=== PATIENT | female | born 1950 | race Caucasian/White ===

== ENCOUNTER 2023-05-17 06:46 | Inpatient (IN) | payer OTHER ==
[~2023-05-17] VITALS: Ht 160 cm; Wt 55.3 kg
[2023-05-17] VITALS (8 sets, daily range): BP systolic 167–217; BP diastolic 94–131
[2023-05-17] MEDS ORDERED: GOOD SENSE ASPI81 M1 PO (07:31)
[2023-05-17] MEDS ORDERED: ADVIL100 M1 PO (07:32)
[2023-05-17 07:58] LABS: BASO # 0.1 10*3/uL (0.0-0.1); BASO % 0.5 % (0.0-1.0); EOS % 0.2 % (1.0-4.0); HEMATOCRIT 47.6 % (37.0-47.0); LYMPH # 1.1 10*3/uL (1.3-4.4); LYMPH % 7.1 % (27.0-41.0); MEAN CELL VOLUME 90.3 fl (81.0-99.0); MEAN CORPUSCULAR HGB 27.3 pg (27.0-31.0); MEAN CORPUSCULAR HGB CONC 30.3 g/dl (33.0-37.0); MEAN PLATELET VOLUME 9.5 fl (9.6-12.3); MONO # 0.6 10*3/uL (0.1-1.0); MONO % 3.7 % (3.0-9.0); NEUT # 13.5 10*3/uL (2.3-7.9); PLATELET COUNT AUTOMATED 390 10*3/uL (130-400); RED BLOOD COUNT 5.27 10*6/uL (4.10-5.10); RED CELL DISTRI WIDTH 15.6 % (0-14.5); WHITE BLOOD COUNT 15.3 10*3/uL (4.8-10.8)
[2023-05-17 08:17] LABS: ALKALINE PHOSPHATASE 67 U/L (46-116); BUN 16 mg/dl (9-23); CHLORIDE 103 mmol/L (98-107); POTASSIUM 3.9 mmol/L (3.4-5.1); SGPT/ALT 124 U/L (5-49)
[2023-05-17 10:46] LABS: BILIRUBIN Negative (Negative); BLOOD 1+ (Negative); CLARITY Clear (Clear); COLOR Yellow (Yellow); GLUCOSE Negative (Negative); KETONE Negative (Negative); LEUKO ESTERASE Negative (Negative); NITRITE Negative (Negative); PH 7.5 (4.5-8.0); SPECIFIC GRAVITY 1.015 (1.001-1.030); UROBILINOGEN 0.2 E.U./dl (0.0-1.0)
[2023-05-17 11:11] LABS: BACTERIA TRACE; WBC 0-2 wbc/hpf (0-5)
[2023-05-18] VITALS: BP 169/91
[2023-05-18 07:29] LABS: BASO % 0.2 % (0.0-1.0); HEMATOCRIT 45.9 % (37.0-47.0); LYMPH # 1.2 10*3/uL (1.3-4.4); LYMPH % 7.5 % (27.0-41.0); MEAN CORPUSCULAR HGB 27.5 pg (27.0-31.0); MEAN CORPUSCULAR HGB CONC 32.2 g/dl (33.0-37.0); MEAN PLATELET VOLUME 9.3 fl (9.6-12.3); MONO % 6.5 % (3.0-9.0); NEUT # 13.6 10*3/uL (2.3-7.9); NEUT % 85.5 % (47.0-73.0); PLATELET COUNT AUTOMATED 378 10*3/uL (130-400); RED BLOOD COUNT 5.38 10*6/uL (4.10-5.10); RED CELL DISTRI WIDTH 15.4 % (0-14.5); WHITE BLOOD COUNT 15.9 10*3/uL (4.8-10.8)
[2023-05-18 07:42] LABS: MEAN CELL VOLUME 85.3 fl (81.0-99.0)
[2023-05-18 07:55] LABS: ALKALINE PHOSPHATASE 69 U/L (46-116); BUN 19 mg/dl (9-23); CHLORIDE 101 mmol/L (98-107); CHOLESTEROL 169 mg/dL (<200); FREE T4 0.86 ng/dl (0.89-1.76); LDL CHOLESTEROL 92 mg/dL (9-159); POTASSIUM 3.9 mmol/L (3.4-5.1); SGPT/ALT 91 U/L (5-49); TOTAL PROTEIN 6.7 gm/dL (6.0-8.0); TRIGLYCERIDES 231 mg/dl (<150)
[2023-05-18 08:00] VITALS: BP 170/102
[2023-05-18 12:00] VITALS: BP 176/103
[2023-05-18 16:00] VITALS: BP 159/102
[2023-05-18 20:00] VITALS: BP 158/85
[2023-05-19] VITALS: BP 134/86
[2023-05-19 08:00] VITALS: BP 130/78
[2023-05-19 08:24] LABS: BASO # 0.1 10*3/uL (0.0-0.1); BASO % 0.3 % (0.0-1.0); EOS % 0.2 % (1.0-4.0); HEMATOCRIT 43.3 % (37.0-47.0); LYMPH # 1.5 10*3/uL (1.3-4.4); LYMPH % 8.2 % (27.0-41.0); MEAN CELL VOLUME 86.6 fl (81.0-99.0); MEAN CORPUSCULAR HGB 27.2 pg (27.0-31.0); MEAN CORPUSCULAR HGB CONC 31.4 g/dl (33.0-37.0); MEAN PLATELET VOLUME 9.5 fl (9.6-12.3); MONO # 1.3 10*3/uL (0.1-1.0); MONO % 7.1 % (3.0-9.0); NEUT % 83.8 % (47.0-73.0); PLATELET COUNT AUTOMATED 319 10*3/uL (130-400); RED CELL DISTRI WIDTH 15.6 % (0-14.5); WHITE BLOOD COUNT 17.9 10*3/uL (4.8-10.8)
[2023-05-19 08:46] LABS: ALKALINE PHOSPHATASE 65 U/L (46-116); BUN 15 mg/dl (9-23); CHLORIDE 104 mmol/L (98-107); POTASSIUM 3.5 mmol/L (3.4-5.1); SGPT/ALT 71 U/L (5-49)
[2023-05-19 12:00] VITALS: BP 134/88
[2023-05-19 16:00] VITALS: BP 142/92
[2023-05-19 20:00] VITALS: BP 141/77
[2023-05-20] VITALS: BP 136/85
[2023-05-20 08:00] VITALS: BP 118/74
[2023-05-20 08:05] LABS: BASO # 0.1 10*3/uL (0.0-0.1); BASO % 0.5 % (0.0-1.0); EOS # 0.1 10*3/uL (0.0-0.4); EOS % 0.6 % (1.0-4.0); HEMATOCRIT 41.8 % (37.0-47.0); LYMPH # 1.4 10*3/uL (1.3-4.4); LYMPH % 8.8 % (27.0-41.0); MEAN CELL VOLUME 87.8 fl (81.0-99.0); MEAN CORPUSCULAR HGB 27.1 pg (27.0-31.0); MEAN CORPUSCULAR HGB CONC 30.9 g/dl (33.0-37.0); MEAN PLATELET VOLUME 9.4 fl (9.6-12.3); MONO % 6.2 % (3.0-9.0); NEUT % 83.4 % (47.0-73.0); PLATELET COUNT AUTOMATED 316 10*3/uL (130-400); RED BLOOD COUNT 4.76 10*6/uL (4.10-5.10); RED CELL DISTRI WIDTH 15.6 % (0-14.5); WHITE BLOOD COUNT 15.6 10*3/uL (4.8-10.8)
[2023-05-20 08:24] LABS: BUN 11 mg/dl (9-23); CHLORIDE 104 mmol/L (98-107); POTASSIUM 3.4 mmol/L (3.4-5.1)
[2023-05-20 12:00] VITALS: BP 98/55
[2023-05-20 15:57] VITALS: BP 107/84
[2023-05-20 20:00] VITALS: BP 111/65
[2023-05-21] VITALS: BP 115/61
[2023-05-21 08:00] VITALS: BP 105/55
[2023-05-21 08:05] LABS: BASO # 0.1 10*3/uL (0.0-0.1); BASO % 0.8 % (0.0-1.0); EOS # 0.2 10*3/uL (0.0-0.4); EOS % 1.7 % (1.0-4.0); HEMATOCRIT 39.2 % (37.0-47.0); LYMPH # 1.2 10*3/uL (1.3-4.4); LYMPH % 8.6 % (27.0-41.0); MEAN CELL VOLUME 86.7 fl (81.0-99.0); MEAN CORPUSCULAR HGB 27.7 pg (27.0-31.0); MEAN CORPUSCULAR HGB CONC 31.9 g/dl (33.0-37.0); MEAN PLATELET VOLUME 9.7 fl (9.6-12.3); MONO # 1.1 10*3/uL (0.1-1.0); MONO % 7.7 % (3.0-9.0); NEUT # 11.1 10*3/uL (2.3-7.9); NEUT % 80.3 % (47.0-73.0); PLATELET COUNT AUTOMATED 313 10*3/uL (130-400); RED BLOOD COUNT 4.52 10*6/uL (4.10-5.10); RED CELL DISTRI WIDTH 15.4 % (0-14.5); WHITE BLOOD COUNT 13.8 10*3/uL (4.8-10.8)
[2023-05-21 08:24] LABS: BUN 11 mg/dl (9-23); CHLORIDE 102 mmol/L (98-107); POTASSIUM 3.2 mmol/L (3.4-5.1)
[2023-05-21 12:00] VITALS: BP 99/63
[2023-05-21 16:00] VITALS: BP 113/66
[2023-05-21 20:00] VITALS: BP 114/66
[2023-05-22] VITALS: BP 118/68
[2023-05-22 08:00] VITALS: BP 98/68
[2023-05-22 12:00] VITALS: BP 120/62
[2023-05-22 16:00] VITALS: BP 130/71
[2023-05-22 20:00] VITALS: BP 126/72
[2023-05-23] VITALS: BP 126/72
[2023-05-23 05:15] LABS: BUN 7 mg/dl (9-23); CHLORIDE 101 mmol/L (98-107)
[2023-05-23 06:11] LABS: BASO # 0.1 10*3/uL (0.0-0.1); BASO % 0.8 % (0.0-1.0); EOS # 0.3 10*3/uL (0.0-0.4); EOS % 2.1 % (1.0-4.0); HEMATOCRIT 37.5 % (37.0-47.0); LYMPH # 1.3 10*3/uL (1.3-4.4); LYMPH % 9.7 % (27.0-41.0); MEAN CELL VOLUME 86.2 fl (81.0-99.0); MEAN CORPUSCULAR HGB 27.6 pg (27.0-31.0); MEAN PLATELET VOLUME 10.1 fl (9.6-12.3); MONO # 1.4 10*3/uL (0.1-1.0); MONO % 10.6 % (3.0-9.0); NEUT # 9.7 10*3/uL (2.3-7.9); NEUT % 73.8 % (47.0-73.0); PLATELET COUNT AUTOMATED 370 10*3/uL (130-400); RED BLOOD COUNT 4.35 10*6/uL (4.10-5.10); RED CELL DISTRI WIDTH 15.2 % (0-14.5); WHITE BLOOD COUNT 13.2 10*3/uL (4.8-10.8)
[2023-05-23 07:04] LABS: BURR CELLS MODERATE; PLATELET SUFFICIENCY NORMAL (NORMAL); SCHISTOCYTES FEW; TOTAL CELLS COUNTED 100 #CELLS
[2023-05-23 08:00] VITALS: BP 102/60
[2023-05-23] MEDS ORDERED: CIPRO500 MG PO (10:48)
[2023-05-23] MEDS ORDERED: METRONIDAZOLE500 M1 PO (10:48)
[2023-05-23] MEDS ORDERED: ZESTRIL10 MG PO (10:50)
[2023-05-23 12:00] VITALS: BP 116/65
[2023-05-23 16:00] VITALS: BP 116/65
[2023-05-23 20:00] VITALS: BP 121/72
[2023-05-24] VITALS: BP 115/59
[2023-05-24 04:48] LABS: BUN 9 mg/dl (9-23); CHLORIDE 102 mmol/L (98-107); POTASSIUM 3.7 mmol/L (3.4-5.1)
[2023-05-24 08:00] VITALS: BP 106/70
== END 2023-05-24 10:30 | disposition home or self-care (01) | DRG 378 ==
LOC: ED 06:46 → EDHOLD 09:36 → 5E 09:36
PROVIDERS: Registered Nurse; Student in an Organized Health Care Education/Training Program; ADMIT Internal Medicine; ATTEND Internal Medicine
DX: K57.33 Diverticulitis of large intestine without perforation or abscess with bleeding (principal); J44.1 Chronic obstructive pulmonary disease with (acute) exacerbation; I16.0 Hypertensive urgency; F17.210 Nicotine dependence, cigarettes, uncomplicated; D72.829 Elevated white blood cell count, unspecified; R91.8 Other nonspecific abnormal finding of lung field; E87.5 Hyperkalemia; I10 Essential (primary) hypertension; Z88.6 Allergy status to analgesic agent

== ENCOUNTER 2023-12-14 18:21 | Inpatient (IN) | payer OTHER ==
[2023-12-14 17:15] VITALS: BP 68/40
[~2023-12-14 18:21] MED LIST: ADVIL100 M1 PO; AMMONIUM LACTA227 GM T; ASPIRIN ADULT L81 M2 PO; ATORVASTATIN CA40 M1 PO; BISACODYL10 MG R; CIPRO500 MG PO; FLUCONAZOLE100 MG PO; GOOD SENSE ASPI81 M1 PO; LASIX20 MG PO; LISINOPRIL20 MG PO; MELATONIN5 M7 PO; METOPROLOL SUCC25 M2 PO; METRONIDAZOLE500 M1 PO; NEURONTIN300 MG PO; OMNICEF300 MG PO; REMERON15 M2 PO; TRAMADOL HCL50 MG PO; TYLENOL EXTRA500 MG PO; VITAMIN D-40010 MCG PO; ZESTRIL10 MG PO; ZITHROMAX250 MG PO
[2023-12-14] MEDS ORDERED: LORazepam 0.5 MG TAB SL PRN (18:45)
[2023-12-14] MEDS ORDERED: ACETAMINOPHEN 650 MG SUPP R PRN (18:45)
[2023-12-14] MEDS ORDERED: Morphine Sulfate 10 MG/0.5 ML CONCENTRATE ORAL SYRINGE SL PRN (18:50)
[2023-12-14] MEDS ORDERED: HYOSCYAMINE SULFATE PO PRN (18:55)
[2023-12-14 19:08] VITALS: BP 69/41
[2023-12-14 20:00] VITALS: BP 70/45
[2023-12-15] VITALS: BP 74/44
[2023-12-15] MEDS ORDERED: FOAM BANDAGE 5X5 T ONE (03:02)
[2023-12-15 08:00] VITALS: BP 70/40
[2023-12-15] MEDS ORDERED: Morphine Sulfate 10 MG/0.5 ML CONCENTRATE ORAL SYRINGE SL SCH (09:00)
[2023-12-15 20:12] VITALS: BP 51/28
[2023-12-15 20:14] VITALS: BP 51/28
[2023-12-16 00:10] VITALS: BP 47/29
[2023-12-16 08:12] VITALS: BP 69/24
== END 2023-12-16 14:53 | DRG 182 ==
LOC: 4E 18:21
PROVIDERS: ADMIT Internal Medicine; ATTEND Internal Medicine
DX: C34.90 Malignant neoplasm of unspecified part of unspecified bronchus or lung (principal); I95.9 Hypotension, unspecified; R62.7 Adult failure to thrive; I25.2 Old myocardial infarction; Z51.5 Encounter for palliative care